=== PATIENT | female | born 1935 | race Caucasian/White ===

== ENCOUNTER 2022-05-27 19:06 | Observation (INO) | payer MEDICARE ==
[2022-05-27 20:07] LABS: #Eosinphils 0.1 10x3/uL (0.0-0.5); #Monocytes 0.8 10x3/uL (0.0-1.1); #Neutrophils 6.8 10x3/uL (1.5-8.4); %Basophils 0.5 % (0.0-2.0); %Eosinophils 0.7 % (0.0-6.0); %Lymphocytes 8.9 % (18.0-47.0); %Monocytes 9.7 % (0.0-10.0); Hemoglobin 14.4 g/dL (12.0-15.5); Mean Corpuscular Hemoglobin 31.4 pg (27.0-33.0); Mean Corpuscular Volume 89.7 fl (81.6-98.3); Platelet Count 231 10x3/uL (150-450); RBC Distribution Width 12.3 % (11.5-14.5); Red Blood Cell (RBC) Count 4.58 10x6/uL (3.90-5.03); White Blood Cell (WBC) Count 8.5 10x3/uL (3.5-10.5)
[2022-05-27] MEDS ORDERED: cefTRIAXone\\ROCEPHIN 1 GM VIAL ONE (20:10)
[2022-05-27 20:19] LABS: ALT (SGPT) 33 U/L (8-55); AST (SGOT) 29 U/L (5-34); Albumin 3.7 g/dL (3.4-4.8); Alkaline Phosphatase 75 U/L (40-110); Anion Gap 13 mmol/L (10-20); BUN (Urea Nitrogen) 13 mg/dL (9.8-20.1); Bilirubin, Total 0.4 mg/dL (0.2-1.2); Calc. Creatinine Clearance 0 mL/min (70-130); Calcium 9.6 mg/dL (7.8-10.44); Carbon Dioxide 26 mmol/L (23-31); Chloride 96 mmol/L (98-107); Estimated GFR 79; Globulin 2.9 g/dL (2.4-3.5); Glucose 105 mg/dL (83-110); Potassium 4.3 mmol/L (3.5-5.1); Protein, Total 6.6 g/dL (5.8-8.1); Sodium 131 mmol/L (136-145)
[2022-05-27 20:21] LABS: Bilirubin Neg (Negative); Blood, Urine 25 (Negative); Clarity Clear (Clear); Glucose, Urine (Dipstick) Normal (Negative); Ketone, Urine Negative (Negative); Leukocyte 100 (Negative); Nitrite Negative (Negative); Protein, Urine (Dipstick) 30 mg/dl (Neg-Trace); Specific Gravity, Urine 1.015 (1.002-1.036); Urobilinogen Normal mg/dL (Less than 2)
[2022-05-27 20:30] LABS: Bacteria/HPF 2+ HPF (None Seen); Mucous/LPF 2+ LPF (<2+); RBC/HPF 0-3 HPF (0-3); Squamous Epithelial 0-3 HPF (0-3); Transitional Epithelial 0-3 HPF (None Seen); WBC/HPF 0-3 HPF (0-3)
[2022-05-27] MEDS ORDERED: Pramipexole Di-HCl 0.25 MG TAB PO SCH (20:45)
[2022-05-27 23:02] VITALS: BMI 24.7
[2022-05-27] MEDS ORDERED: Senokot S 8.6-50 MG TAB PO PRN (23:44)
[2022-05-27] MEDS ORDERED: Calcium Carbonate 500 MG ChewTAB PO PRN (23:44)
[2022-05-27] MEDS ORDERED: Guaifenesin DM 100-10/5 ML UDCUP PO PRN (23:44)
[2022-05-27] MEDS ORDERED: Acetaminophen 325 MG TAB PO PRN (23:44)
[2022-05-27] MEDS ORDERED: Ondansetron PF 4 MG/2 ML Vial IVP PRN (23:44)
[2022-05-28] MEDS: Albuterol Sulfate 2.5 mg/3 ml Neb NEB SCH ×4 (03:40→14:47)
[2022-05-28] MEDS ORDERED: Mometasone/Formoterol 200/5 60 PUFF INH SCH (06:30)
[2022-05-28] MEDS ORDERED: Vit A,C & E/Lutein/Minerals Tablet PO SCH (09:00)
[2022-05-28] MEDS ORDERED: Lisinopril 20 MG TAB PO SCH (09:00)
[2022-05-28] MEDS ORDERED: Enoxaparin Sodium 40 MG/0.4 ML SYRINGE SC SCH (09:00)
[2022-05-28] MEDS ORDERED: Spironolactone 25 MG TAB PO SCH (09:00)
[2022-05-28] MEDS ORDERED: cefTRIAXone\\ROCEPHIN 1 GM in Sodium Chloride 0.9% 100 ML IVPB SCH (09:00)
[2022-05-28 16:17] VITALS: BP 141/64; TEMP 98.3
[2022-05-28] MEDS ORDERED: NIFEdipine XL 60 MG TAB PO SCH (21:00)
[2022-05-28] MEDS ORDERED: Pramipexole Di-HCl 0.25 MG TAB PO SCH (21:00)
== END 2022-05-28 17:37 | disposition home or self-care (01) ==
LOC: CSHERS 19:06 → CSHTELE 22:42
PROVIDERS: ADMIT Student in an Organized Health Care Education/Training Program; ATTEND Family Medicine
DX: N30.00 Acute cystitis without hematuria (principal); B96.20 Unspecified Escherichia coli [E. coli] as the cause of diseases classified elsewhere; J44.9 Chronic obstructive pulmonary disease, unspecified; Z85.3 Personal history of malignant neoplasm of breast; F17.210 Nicotine dependence, cigarettes, uncomplicated; I10 Essential (primary) hypertension; E78.5 Hyperlipidemia, unspecified; G25.81 Restless legs syndrome; Z79.899 Other long term (current) drug therapy; Z79.51 Long term (current) use of inhaled steroids
CPT/HCPCS: 80053; 81003; 81015; 85025; 87040; 87086; 94640; 94664; 94760; 96365; J0696; J1650; J3490; J7611